=== PATIENT | female | born 1945 | race American Indian/Alaskan Native ===

== ENCOUNTER 2018-12-05 11:17 | Outpatient (CLI) | payer MEDICARE, OTHER | END 2018-12-05 11:18 | disposition home or self-care (01) | LOC: C.MAMMO 11:17 | DX: Z12.31 Encounter for screening mammogram for malignant neoplasm of breast (principal) ==

== ENCOUNTER 2019-01-05 17:55 | Emergency (ER) | payer MEDICARE, OTHER ==
[2019-01-05 17:55] VITALS: BMI 30.1
[2019-01-05 18:05] VITALS: BP 145/85; PULSE 90; RESP 18; TEMP 98.6; O2SAT 98
--- NOTE | 2019-01-05 19:23 | C.PDOC ---
History Of Present Illness 73-year-old female presents to the ED for evaluation of right lower back pain that radiates down her right leg which began around 2017 and worsened over the past week. Patient has been taking Valium prescribed by her PMD without relief. She states that she is scheduled for an appointment with her neurosurgeon next month, but presents to the ED for evaluation. She denies fever, chills, hematuria, dysuria, urinary retention, bowel/bladder incontinence, extremity numbness/weakness, or recent falls/injuries. Time Seen by Provider: 01/05/19 18:07 Chief Complaint (Nursing): Lower Extremity Problem/Injury History Per: Patient History/Exam Limitations: no limitations Onset/Duration Of Symptoms: Other (one week ) Current Symptoms Are (Timing): Worse Additional History Per: Patient Past Medical History Reviewed: Historical Data, Nursing Documentation, Vital Signs Vital Signs: Last Vital Signs Temp 98.6 F 01/05/19 18:03 Pulse 90 01/05/19 18:03 Resp 18 01/05/19 18:03 BP 145/85 01/05/19 18:03 Pulse Ox 98 01/05/19 18:03 - Medical History PMH: Arthritis, Asthma (BRONCHIAL ASTHMA), HTN, Pneumonia (child) Denies: Chronic Kidney Disease Surgical History: Cholecystectomy - [facility] Procedures OTHER REPAIR OF KNEE (12/13/01) Family History: States: Unknown Family Hx - Social History Hx Tobacco Use: No Hx Alcohol Use: No Hx Substance Use: No - Immunization History Hx Tetanus Toxoid Vaccination: No Hx Influenza Vaccination: Yes Hx Pneumococcal Vaccination: Yes Review Of Systems Constitutional: Negative for: Fever, Chills Genitourinary: Negative for: Dysuria, Incontinence, Hematuria Musculoskeletal: Positive for: Back Pain (right-sided, lower ) Neurological: Negative for: Weakness, Numbness Physical Exam - Physical Exam Appears: Non-toxic, Other (in moderate pain ) Skin: Normal Color, Warm, Dry Head: Atraumatic, Normacephalic Eye(s): bilateral: Normal Inspection Oral Mucosa: Moist Neck: Supple Chest: Symmetrical, No Deformity, No Tenderness Cardiovascular: Rhythm Regular, No Murmur Respiratory: Normal Breath Sounds, No Rales, No Rhonchi, No Wheezing Gastrointestinal/Abdominal: Soft, No Tenderness, No Guarding, No Rebound Back: Paraspinal Tenderness (right-sided) Extremity: Normal ROM, Capillary Refill (less than 2 seconds ) Neurological/Psych: Oriented x3, Normal Speech, Normal Cognition, Normal Motor, Normal Sensation Gait: Other (ambulatory with limp) ED Course And Treatment O2 Sat by Pulse Oximetry: 98 (on RA) Pulse Ox Interpretation: Normal Progress Note: Valium PO, Toradol IM, and Prednisone PO given. On reassessment, patient is resting comfortably, showing no signs of distress and reports an improvement in her pain. Patient is stable for discharge and is adivsed to f/u with her PMD within 1 week for further evaluation. Disposition Counseled Patient/Family Regarding: Diagnosis, Need For Followup, Rx Given - Disposition Referrals: Sabrina Lozoya MD [Staff Provider] - Disposition: HOME/ ROUTINE Disposition Time: 19:20 Condition: STABLE Additional Instructions: FOLLOW UP WITH YOUR DOCTOR IN 1-2 DAYS USE MEDICATIONS DIRECTED/NEEDED RETURN TO ER IF SYMPTOMS WORSEN Prescriptions: Metaxalone 800 mg PO TID PRN #20 tablet PRN Reason: muslce spasm predniSONE [predniSONE Tab] 40 mg PO DAILY #6 tab Instructions: Sciatica (DC) Forms: [employer] ([place]) Print Language: MALDIVIAN - Clinical Impression Clinical Impression: Sciatica - Scribe Statement The provider has reviewed the documentation as recorded by the Scribe (Elisabeth Dimas) Provider Attestation: All medical record entries made by the Scribe were at my direction and personally dictated by me. I have reviewed the chart and agree that the record accurately reflects my personal performance of the history, physical exam, medical decision making, and the department course for this patient. I have also personally directed, reviewed, and agree with the discharge instructions and disposition.
== END 2019-01-05 19:30 | disposition home or self-care (01) ==
LOC: C.ER 17:55
DX: M54.30 Sciatica, unspecified side (principal); I10 Essential (primary) hypertension
CPT/HCPCS: 96372; 99284; J1885